=== PATIENT | male | born 1980 | race Hispanic/Latino ===

== ENCOUNTER 2018-03-24 22:21 | Emergency (ER) | payer SELFPAY ==
[2018-03-24] MEDS ORDERED: NA BORATE/BORIC AC/H2O/NACL 120 ML OPHTH IRRIG SOLN ONE (22:38)
[2018-03-24] MEDS ORDERED: FLUORESCEIN SODIUM 0.6 MG STRIP ONE (22:38)
[2018-03-24] MEDS ORDERED: TETRACAINE HCL 0.5% 4 ML OPHTH SOLN ONE (22:38)
[2018-03-24] MEDS ORDERED: ERYTHROMYCIN BASE 0.5% OPHTH OINT 1 GM TUBE ONE (22:39)
[2018-03-24] MEDS ORDERED: HYDROCODONE/ACETAMINOPHEN 5/325 MG TAB ONE (23:16)
[2018-03-24] MEDS ORDERED: TETANUS/DIPHTHERIA TOXOID [ADULT] 0.5 ML VIAL IM ONE (23:17)
== END 2018-03-25 00:21 | disposition home or self-care (01) ==
LOC: EDH 22:21
DX: T15.01XA Foreign body in cornea, right eye, initial encounter (principal); X58.XXXA Exposure to other specified factors, initial encounter; Y93.89 Activity, other specified; Y92.89 Other specified places as the place of occurrence of the external cause; Y99.8 Other external cause status
CPT/HCPCS: 65222; 90471; 90714

== ENCOUNTER 2018-04-05 22:49 | Emergency (ER) | payer SELFPAY ==
[2018-04-05] MEDS ORDERED: TETRACAINE HCL 0.5% 4 ML OPHTH SOLN ONE (23:41)
[2018-04-05] MEDS ORDERED: NA BORATE/BORIC AC/H2O/NACL 120 ML OPHTH IRRIG SOLN ONE (23:41)
[2018-04-05] MEDS ORDERED: FLUORESCEIN SODIUM 0.6 MG STRIP ONE (23:42)
== END 2018-04-06 00:03 | disposition home or self-care (01) ==
LOC: EDH 22:49
DX: S05.01XA Injury of conjunctiva and corneal abrasion without foreign body, right eye, initial encounter (principal); X58.XXXA Exposure to other specified factors, initial encounter; Y93.89 Activity, other specified; Y92.89 Other specified places as the place of occurrence of the external cause; Y99.8 Other external cause status